=== PATIENT | female | born 1975 | race Caucasian/White ===

== ENCOUNTER → 2023-04-28 | Outpatient (CLI) | payer OTHER ==
[~2023-04-28] MED LIST: CRUTCH4 USE; HYDACE5 PO; OXYACE5T PO; RXCLIN PO; RXHYDACE PO
== END ==
LOC: LAB SHORT 17:06 → LAB 17:06
PROVIDERS: General Practice
DX: N89.8 Other specified noninflammatory disorders of vagina (principal); Z12.4 Encounter for screening for malignant neoplasm of cervix
CPT/HCPCS: 83001; 87070; 87205